=== PATIENT | female | born 1990 | race Caucasian/White ===

== ENCOUNTER 2016-12-12 16:22 | Emergency (ER) | payer SELFPAY ==
--- NOTE | 2016-12-12 18:35 | UC ---
Head Injury HPI - HPI Summary HPI Summary: 2 DAYS AGO AT WORK ([employer]) A 2X4 PIECE OF WOOD FROM A GATE FELL ON TOP RIGHT SIDE OF HER HEAD. NO LOC. SINCE THEN HAS HAD ARENAS AND LIGHTHEADEDNESS WITH SOME MILD PHOTOPHOBIA AND PHONOPHOBIA. NO NAUSEA OR VISUAL OR GAIT DISTURBANCES. NAPROXEN IS HELPFUL. - History Of Current Complaint Chief Complaint: UCHeadInjury Stated Complaint: HEAD INJURY Time Seen by Provider: 12/12/16 18:25 Hx Obtained From: Patient Hx Last Menstrual Period: 12/06/16 Onset/Duration: Sudden Onset, Lasting Days, Still Present Severity Currently: Moderate Severity Initially: Moderate Pain Intensity: 8 Pain Scale Used: 0-10 Numeric Character: Sharp Aggravating Factor(s): Nothing Alleviating Factor(s): Nothing Associated Signs And Symptoms: Negative: LOC (Time In Secs./Mins/Hrs), LOC Duration Unknown, Confusion, Memory Loss, Seizure, Epistaxis, Dental Malocclusion, Neck Pain, Nausea, Vomiting - Allergies/Home Medications Allergies/Adverse Reactions: Allergies Allergy/AdvReac Type Severity Reaction Status Date / Time No Known Allergies Allergy Verified 12/12/16 17:02 Home Medications: Home Medications Naproxen TAB* [Naprosyn TAB*] 500 mg PO BID 12/12/16 [History Confirmed 12/12/16 ] PMH/Surg Hx/FS Hx/Imm Hx Psychological History Of: Reports: Depression - Surgical History Surgical History: Yes Surgery Procedure, Year, and Place: WISDOM TEETH REMOVAL - Family History Known Family History: Positive: Cardiac Disease, Hypertension - Social History Alcohol Use: Occasionally Substance Use Type: Marijuana Substance Use Comment - Amount & Last Used: Rarely Smoking Status (MU): Current Some Day Smoker Type: Cigarettes Amount Used/How Often: 3 CIGARETTES Length of Time of Smoking/Using Tobacco: 3 YEARS Have You Smoked in the Last Year: Yes - Immunization History Most Recent Influenza Vaccination: None Most Recent Tetanus Shot: UTD Most Recent Pneumonia Vaccination: None Review of Systems Constitutional: Negative Skin: Negative Eyes: Photophobia Respiratory: Negative Cardiovascular: Negative Gastrointestinal: Negative Neurological: Headache, Other - LIGHTHEADED All Other Systems Reviewed And Are Negative: Yes Physical Exam Triage Information Reviewed: Yes Appearance: Well-Appearing, No Pain Distress, Well-Nourished Vital Signs: Initial Vital Signs Temp 98.3 F 12/12/16 17:04 Pulse 67 12/12/16 17:04 Resp 18 12/12/16 17:04 BP 124/68 12/12/16 17:04 Pulse Ox 100 12/12/16 17:04 Vital Signs Reviewed: Yes Eyes: Positive: Conjunctiva Clear ENT: Positive: Hearing grossly normal, Pharynx normal, TMs normal Neck: Positive: Supple, Nontender, No Lymphadenopathy Respiratory Exam: Normal Cardiovascular Exam: Normal Abdomen Description: Positive: Soft Musculoskeletal: Positive: No Edema Neurological: Positive: Alert, Other: - CN II-XII GROSSLY INTACT BILATERALLY. NEG PRONATOR DRIFT. FINGER TO NOSE INTACT BILATERALLY. HEEL TO ALAN INTACT BILATERALLY. RAPID ALTERNATING MVMTS INTACT. 5/5 STRENGTH Psychological: Positive: Age Appropriate Behavior Skin: Negative: rashes Head Injury Course/Dx - Differential Dx/Diagnosis Provider Diagnoses: CONCUSSION Discharge - Discharge Plan Condition: Stable Disposition: HOME Patient Education Materials: Concussion (ED) Forms: *Work Release Referrals: Christiana Cervantes MD [Medical Doctor] - If Needed Additional Instructions: GO TO THE ER WITHOUT FAIL IF YOU DEVELOP UNEQUAL PUPILS, VISUAL DISTURBANCE, GAIT INSTABILITY, SPEECH DIFFICULTY, NAUSEA/VOMITING, WORSENING HEADACHE, DIZZINESS, CONFUSION, WEAKNESS OR ANY OTHER CONCERNING SYMPTOMS. [facility]
[2016-12-12 20:05] VITALS: BP 123/67
== END 2016-12-12 18:45 | disposition home or self-care (01) ==
LOC: UCEAST 16:22
DX: S06.0X0A Concussion without loss of consciousness, initial encounter (principal); W20.8XXA Other cause of strike by thrown, projected or falling object, initial encounter; Y93.9 Activity, unspecified; Y92.89 Other specified places as the place of occurrence of the external cause; Y99.0 Civilian activity done for income or pay; Z72.0 Tobacco use
CPT/HCPCS: 99202; G0463